=== PATIENT | male | born 1960 | race Caucasian/White ===

== ENCOUNTER 2017-04-25 15:00 | Outpatient (RCR) | payer BC ==
--- NOTE | 2017-01-31 17:23 | CARDIAC REHAB PLAN OF CARE ---
Physician: Prabhjot AGUILAR Patient is being seen: Audie Gaye Date of Initial Evaluation: December 28, 2016 SHORT TERM GOALS Short Term Goals Due Date: 03/02/17 Short Term Goals: 56 year old male phase II patient comes back to cardiac rehab after a month off because of travel. Patient had AVR and repair of ascending aortic aneurysm with a graft. Patient had severe aortic stenosis, has periodic A-fib, and a long history of hypertension. Patient is 5'11" 290 pounds with a healthy maximum BMI weight listed at 179 pounds. Past medical history also includes gout, and patient has was a long time user of smokeless tobacco with 1 can lasting a day and a half. Patient stopped tobacco Dec 05, 2016 at the time of his surgery (AVR). The patient will be consistent with cardio exercise of at least 150 minutes of a moderate level and add in weight resistence at least twice a week. Patient will also adjust diet to a heart healthy diet and reduce caloric intake to allow for safe weight loss towards his goal weight. Short Term Goals Met: Patient has made six visits to cardiac rehab and completes 20 minutes on the treadmill, 10 laps on the track, and 20 minutes on the recumbent, followed by a 4 pound dumbbell upper body workout. SPO2 levels remain in the 90's on room air and the nuclear monitoring technician shows a ST without ectopy and at times is in Atrial Fibrillation. Short Term Goals Not Met Due To: [facility] GOALS Administrative Support Clerk Goal Due Date: 04/02/17 Alf Goals: biodiesel division manager goals for the patient are to maintain that consistent cardio exercise each week of at least 150 minutes and add in the weight resistence at least twice a week. Patient will need to continue to adjust diet calorie amount and reduce sugar and refined carbs in his diet to consume healthy calories and also reduce weight. Administrative Support Clerk Goals Met: Alf Goals Not Met Due To: PATIENT'S GOALS Patient Goals Due Date: 03/02/17 Patient Goals: Patient goals are to regain health and return to all previous activities. Patient Goals Met: Patient Goals Not Met Due To: Cardiac Rehabilitation Plan of Care Comment: Cardiac rehab staff will monitor, record, and evaluate vitals, ECG, and exercise results to provide the best plan of care for the patient throughout the 36 visit phase II program. CR staff will motivate and educate the patient during visits for rehab. RYAN
[2017-02-07 16:19] VITALS: BP 152/76
[2017-02-07 16:20] VITALS: BP 148/76
[2017-02-12 16:43] VITALS: BP 140/78
[2017-02-12 16:45] VITALS: BP 131/72
[2017-02-14 16:57] VITALS: BP 120/80
[2017-02-14 16:59] VITALS: BP 132/84
[2017-02-16 16:31] VITALS: BP_SYST 128; BP_SYST 132; BP_DIAS 60; BP_DIAS 84
[2017-02-19 16:24] VITALS: BP 130/72
[2017-02-19 16:25] VITALS: BP 150/78
[2017-02-21 16:26] VITALS: BP 142/86
[2017-02-21 16:27] VITALS: BP 126/64
[2017-02-23 16:53] VITALS: BP 130/84
[2017-02-23 16:55] VITALS: BP 110/68
[2017-02-26 17:39] VITALS: BP 130/80
[2017-02-26 17:40] VITALS: BP 128/80
--- NOTE | 2017-02-28 12:22 | CARDIAC REHAB PLAN OF CARE ---
Physician: Prabhjot AGUILAR Patient is being seen: Audie Huizar Medical Diagnosis: AVR, A-Fib Date of Initial Evaluation: 12/28/2016 SHORT TERM GOALS Short Term Goals Due Date: 03/31/17 Short Term Goals: 56 year old male phase II patient comes back to cardiac rehab after a month off because of travel. Patient had AVR and repair of ascending aortic aneurysm with a graft. Patient had severe aortic stenosis, has periodic A-fib, and a long history of hypertension. Patient is 5'11" 290 pounds with a healthy maximum BMI weight listed at 179 pounds. Past medical history also includes gout, and patient has was a long time user of smokeless tobacco with 1 can lasting a day and a half. Patient stopped tobacco Dec 05, 2016 at the time of his surgery (AVR). The patient will be consistent with cardio exercise of at least 150 minutes of a moderate level and add in weight resistance at least twice a week. Patient will also adjust diet to a heart healthy diet and reduce caloric intake to allow for safe weight loss towards his goal weight. Short Term Goals Met: Patient has made 15 visits for cardiac rehab and tolerates 30 minutes of cardio exercise along with weight resistance exercise with 6 pound dumbbells. During exercise SPO2 values remain in the 90's on room air and the clinical research monitor shows a ST without ectopy and rates up to the 130' s. Patient has not had any A-fib during cardiac rehab since 2016. Short Term Goals Not Met Due To: Patient's weight remains the same. PRISON GOALS Manager Gaming Goal Due Date: 05/01/17 Nursing Home Goals: prison goals for the patient remains to be consistent with exercise and to continue to modify diet to heart healthy foods with proper portions to improve health and reduce weight. Manager Gaming Goals Met: Patient has improved duration and intensity of exercise and also gained strength. Manager Gaming Goals Not Met Due To: Patient has not lost weight and has not made enough progress on improving diet. PATIENT'S GOALS Patient Goals Due Date: 03/31/17 Patient Goals: Patient goals remain to improve cardiac and overall health and to be able to remain active. Patient Goals Met: Patient Goals Not Met Due To: Cardiac Rehabilitation Plan of Care Comment: Cardiac rehab staff will continue to record, monitor, and evaluate vitals, ECG, and exercise results to provide the best plan of care for the patient throughout the 36 visit phase II program. CR staff will motivate and educate the patient during visits for rehab. RYAN
[2017-02-28 16:11] VITALS: BP 124/72
[2017-02-28 16:12] VITALS: BP 130/84
[2017-03-07 16:30] VITALS: BP 138/82
[2017-03-07 16:31] VITALS: BP 150/88
[2017-03-09 16:58] VITALS: BP 132/80
[2017-03-09 16:59] VITALS: BP 138/84
[2017-03-14 17:08] VITALS: BP 122/58
[2017-03-14 17:09] VITALS: BP 120/80
[2017-03-16 16:12] VITALS: BP 142/76
[2017-03-16 16:13] VITALS: BP 130/78
[2017-03-19 16:33] VITALS: BP 140/90
[2017-03-19 16:34] VITALS: BP 140/82
[2017-03-21 16:17] VITALS: BP_SYST 130; BP_SYST 132; BP_DIAS 72; BP_DIAS 76
[2017-03-23 16:57] VITALS: BP 138/70
[2017-03-23 16:59] VITALS: BP 140/92
[2017-03-26 17:15] VITALS: BP 122/80
[2017-03-26 17:16] VITALS: BP 122/80
[2017-03-28 17:27] VITALS: BP 138/80
[2017-03-28 17:28] VITALS: BP 124/80
--- NOTE | 2017-03-30 12:13 | CARDIAC REHAB PLAN OF CARE ---
Physician: Prabhjot AGUILAR Patient is being seen: Audie Huizar Medical Diagnosis: AVR, A-Fib Date of Initial Evaluation: 12/28/16 SHORT TERM GOALS Short Term Goals Due Date: 04/30/17 Short Term Goals: 56 year old male phase II patient comes back to cardiac rehab after a month off because of travel. Patient had AVR and repair of ascending aortic aneurysm with a graft. Patient had severe aortic stenosis, has periodic A-fib, and a long history of hypertension. Patient is 5'11" 290 pounds with a healthy maximum BMI weight listed at 179 pounds. Past medical history also includes gout, and patient has was a long time user of smokeless tobacco with 1 can lasting a day and a half. Patient stopped tobacco Dec 05, 2016 at the time of his surgery (AVR). The patient will be consistent with cardio exercise of at least 150 minutes of a moderate level and add in weight resistance at least twice a week. Patient will also adjust diet to a heart healthy diet and reduce caloric intake to allow for safe weight loss towards his goal weight. Short Term Goals Met: Patient has made 25 visits for cardiac rehab and tolerates 35 minutes of cardio exercise along with weight resistance exercise with 6 pound dumbbells. During exercise SPO2 values remain in the 90's on room air and the prism inspector shows a ST without ectopy and rates up to the 130' s. Patient has not had any A-fib during cardiac rehab since 2016. Short Term Goals Not Met Due To: Patients weight remains the same. JAIL GOALS Drill Press Operator Helper Goal Due Date: 05/28/17 Drill Press Operator Helper Goals: long-term goals for the patient remains to be consistent with exercise and to continue to modify diet to heart healthy foods with proper portions to improve health and reduce weight. Drill Press Operator Helper Goals Met: Patient has improved duration and intensity of exercise. Residential Goals Not Met Due To: Patient has not lost weight and has not made enough progress on improving diet. PATIENT'S GOALS Patient Goals Due Date: 04/30/17 Patient Goals: Patient goals remain to improve cardiac and overall health and to be able to remain active. Patient Goals Met: Patient Goals Not Met Due To: Cardiac Rehabilitation Plan of Care Comment: Cardiac rehab staff will continue to record, monitor, and evaluate vitals, ECG, and exercise results to provide the best plan of care for the patient throughout the 36 visit phase II program. CR staff will motivate and educate the patient during visits for rehab. RYAN
[2017-03-30 16:47] VITALS: BP_SYST 138; BP_SYST 142; BP_DIAS 80; BP_DIAS 90
[2017-04-02 16:33] VITALS: BP 162/88
[2017-04-02 16:34] VITALS: BP 154/88
[2017-04-04 16:42] VITALS: BP 138/70
[2017-04-04 16:43] VITALS: BP 136/84
[2017-04-06 16:57] VITALS: BP_SYST 124; BP_SYST 138; BP_DIAS 80; BP_DIAS 86
[2017-04-09 16:37] VITALS: BP 140/86
[2017-04-09 16:38] VITALS: BP 138/76
[2017-04-11 16:57] VITALS: BP_SYST 110; BP_SYST 132; BP_DIAS 64; BP_DIAS 70; BP_DIAS 85
[2017-04-13 16:27] VITALS: BP 134/68
[2017-04-13 16:28] VITALS: BP 152/86
[2017-04-16 16:34] VITALS: BP 156/84
[2017-04-16 16:35] VITALS: BP 148/84
[2017-04-18 16:40] VITALS: BP 152/78
[2017-04-18 16:41] VITALS: BP 140/78
[2017-04-20 16:46] VITALS: BP 136/78
[2017-04-20 16:47] VITALS: BP 142/86
[2017-04-23 16:40] VITALS: BP 142/84
[~2017-04-25 15:00] MED LIST: LOR5 PO; MULT-964 PO; OLME1TAB60 PO; PROB500T31 PO; PROM-100 PO
[2017-04-25 17:44] VITALS: BP 138/80
[2017-04-25 17:45] VITALS: BP 130/80
== END 2017-04-25 18:00 | disposition home or self-care (01) ==
LOC: CARD 15:00
PROVIDERS: ATTEND Surgery Vascular Surgery
DX: Z95.2 Presence of prosthetic heart valve (principal); I10 Essential (primary) hypertension; I48.91 Unspecified atrial fibrillation; M10.00 Idiopathic gout, unspecified site; Z87.891 Personal history of nicotine dependence
CPT/HCPCS: 93798

== ENCOUNTER → 2018-01-15 | Outpatient (CLI) | payer BC ==
--- NOTE | 2018-01-15 15:20 | RADIOLOGY IMAGING REPORT ---
FACILITY: [facility] PATIENT NAME: Jesús Kern : 1960 MR: [id number] V: [id number] EXAM DATE: ORDERING PHYSICIAN: KRISTEN PEREZ TECHNOLOGIST[place] [facility] [place] : 1960 Visit/Account:[id number] Date of Sevice: 01/15/2018 FOOT 2 VIEW LEFT COMPARISON: None. HISTORY: Foot pain in the heel, hours her doctor plantar fasciitis for over 10 years TECHNIQUE: 2 views of the left foot were obtained without weightbearing technique FINDINGS: BONES: No significant arthropathy, fracture, dislocation, or significant osseous lesion. Alignment is within normal limits for non-weightbearing technique. Metatarsal bases are appropriately aligned. Calcaneal height is preserved. A prominent posterior calcaneal enthesophyte is noted at the expecte d Achilles tendon insertion. Chronic ossification at the tip of the lateral malleolus is probably re lated to remote trauma. SOFT TISSUES: Achilles tendon silhouette within normal limits. No visible soft tissue swelling. EFFUSION: None suggested. OTHER: Negative. IMPRESSION: No specific findings to account for heel pain in the left foot. A prominent posterior calcaneal enth esophyte is noted at the expected Achilles insertion; the Achilles tendon silhouette is normal. Report Dictated By: Nathan Cook at 01/15/2018 3:14 PM Report E-Signed By: Nathan Cook at 01/15/2018 3:16 PM [email or web address]
== END ==
LOC: RAD 14:23
PROVIDERS: ATTEND Family Medicine
DX: M79.672 Pain in left foot (principal)